=== PATIENT | male | born 1990 | race Caucasian/White ===

== ENCOUNTER 2021-09-28 14:58 | Outpatient (REF) | payer OTHER, SELFPAY | END 2021-09-28 14:59 | disposition home or self-care (01) | LOC: HO.MRI 14:58 | PROVIDERS: Visit Provider Nurse Practitioner Family | DX: Z13.89 Encounter for screening for other disorder (principal) ==

== ENCOUNTER 2023-08-28 12:59 | Outpatient (AMB) | payer OTHER, SELFPAY ==
--- NOTE | 2023-08-28 13:04 | A.OFFVIS_ITS ---
Intake Intake Visit Reasons: Urinary incontinence Intake Note: New Patient presents for initial visit for urinary incontinence Urology Medications: none Blood Thinner: none PVR: 55ml's Rehabilitation Counsellor Required: No Accompanied by: service dog Allergies cyclobenzaprine Allergy (Mild, Verified 08/29/23 13:31) Unknown gabapentin Allergy (Mild, Verified 08/29/23 13:31) Unknown grass pollen Allergy (Mild, Verified 08/29/23 13:31) Unknown melatonin Allergy (Mild, Verified 08/29/23 13:31) Unknown paxil Allergy (Mild, Uncoded 08/29/23 13:31) Unknown Medication List - Last Reconciled 08/29/23 by MONIKA Bateman escitalopram oxalate 20 mg PO DAILY methylphenidate HCl 20 mg PO DAILY zinc acetate (Galzin) 50 mg PO DAILY HPI HPI Comments History of Present Illness Details Matthew is a very pleasant 33-year-old male patient who was accompanied by his service dog at today's visit. He has a past medical history of PTSD, obstructive sleep apnea, morbid obesity, major depression, irritability and anger, insomnia, hypothyroidism, hyperlipidemia, GERD, and acquired buried penis. He presents to the office today as a new patient for urinary incontinence. Discussion with the patient today reports symptoms to have been present for quite some time however feels they are worsening. He reports urinary frequency, urinary urgency, and episodes of incontinence if not near a bathroom. He also reports noting issues with erectile dysfunction. He otherwise denies nocturia, hematuria, dysuria, foul smelling urine, changes to urinary stream, flank pain, fever, and or chills. In office urinalysis results reviewed with the patient today. PVR 55 mL. Discussed at length lifestyle modifications to assist with lower urinary tract symptoms and erectile dysfunction. When asked patient does report both maternal and paternal family history is of prostate cancer. [facility] Medical History (Updated 08/29/23 @ 14:52 by MONIKA Bateman) PTSD (post-traumatic stress disorder) Pain in left thigh Obstructive sleep apnea Morbid obesity Major depression Irritability and anger Insomnia due to mental condition Impaired fasting glucose Hypothyroidism Hyperlipidemia GERD (gastroesophageal reflux disease) Chest pain Acquired buried penis Review of Systems Eyes Reports no additional complaints ENT Reports no additional complaints Card Reports as per HPI Resp Reports as per HPI GI Reports no additional complaints Reports as per HPI Musc Reports no additional complaints Neuro Reports as per HPI Psych Reports as per HPI Endo Reports no additional complaints Chandler/Lymph Reports no additional complaints Aller/Immun Reports no additional complaints Physical Exam Const General: cooperative, comfortable, no acute distress, well developed, alert and awake Nutritional Appearance: overweight Orientation/consciousness: patient oriented x3 Limitations: no limitations HEENT Head: Yes normal to inspection, Yes normocephalic and Yes atraumatic Ears: hearing grossly normal bilaterally Eyes General: appearance normal, both eyes and all related structures Neck Neck: Yes normal visual inspection and Yes trachea midline Chest Chest palpation & inspection: normal inspection of the chest Resp Effort & Inspection: normal respiratory effort and able to speak in complete sentences Cardio Rate: regular rate GI Inspection: Yes normal to inspection General: Yes no CVA tenderness Back/Spine/Pelvis Back: no CVA tenderness Skin General skin exam: no rashes or lesions noted Neuro General: patient oriented x3 Extrem General: Yes normal to inspection Psych Appearance: grossly normal and well kempt Mental Status: mental status grossly normal Speech and movement: Normal speech and movement present and Clear speech present Affect: normal affect Attitude: cooperative Thought process: Normal thought process present Thought content: Normal thought content present Insight: Fair insight present (Psych) Judgement: Fair judgement present (Psych) Office Procedures Post Void Residual Post Residual Void Post Void Residual (PVR): 55 [id number] Void Residual by ultrasound Results AMB Urinalysis, Automated UA Leukoctes 0 Shiela/uL Last Edit by SCM-GL Tramaine on 08/28/23 13:49 UA Nitrite Negative Last Edit by SCM-GL Tramaine on 08/28/23 13:49 UA Urobilinogen 0.2 mg/dL Last Edit by SCM-GL Tramaine on 08/28/23 13:49 UA Protein 15 mg/dL Last Edit by [employer] on 08/28/23 13:49 UA pH 6.0 Last Edit by [employer] on 08/28/23 13:49 UA Blood 25 Darrin/uL Last Edit by SCM-GL [employer] on 08/28/23 13:49 UA Specific [place] 1.015 Last Edit by [employer] on 08/28/23 13:49 UA Ketone Negative Last Edit by [email or web address] on 08/28/23 13:49 UA Bilirubin 1 mg/dL Last Edit by [email or web address] on 08/28/23 13:49 UA Glucose 0 mg/dL Last Edit by Korey Redd on 08/28/23 13:49 Results Reviewed Results Reviewed: Laboratory Last Values Urine pH (Auto) 6.0 08/28/23 13:43 Specific [place] (Auto) 1.015 08/28/23 13:43 Urine Protein (Auto) 15 mg/dL 08/28/23 13:43 Glucose (UA)(Auto) 0 mg/dL 08/28/23 13:43 Urine Ketones (Auto) Negative 08/28/23 13:43 Urine Blood (Auto) 25 Darrin/uL 08/28/23 13:43 Urine Nitrite (Auto) Negative 08/28/23 13:43 Urine Bilirubin (Auto) 1 mg/dL 08/28/23 13:43 Urine Urobilinogen (Auto) 0.2 mg/dL 08/28/23 13:43 Leukocyte Esterase (Auto) 0 Shiela/uL 08/28/23 13:43 Assessment & Plan Assessment & Plan (1) Lower urinary tract symptoms: Code(s): R39.9 - Unspecified symptoms and signs involving the genitourinary system (2) Urinary incontinence, urge: Code(s): N39.41 - Urge incontinence Plan In office urinalysis results reviewed with the patient today; as noted above. PVR 55 mL. Discussed at length potential causes for lower urinary tract symptoms. Discussed bladder triggers/irritants. Will obtain retroperitoneal ultrasound for further assessment evaluation Will obtain PSA for further assessment evaluation. Discussed at length lifestyle modifications with continuing to lose weight, attempting to void sitting down, scheduled toileting, and pelvic floor therapy. Follow-up in 6-8 weeks with imaging and labs to be completed prior; or sooner with any issues, concerns, and or questions. Orders: Orders AMB Post Void Residual by ultrasound 08/28/23 Z13.9 - Encounter for screening, unspecified US retroperitoneal comp 08/28/23 R39.9 - Unspecified symptoms and signs involving the genitourinary system Urine Cytology 08/28/23 R39.9 - Unspecified symptoms and signs involving the genitourinary system AMB Urinalysis Automated 08/28/23 Z13.9 - Encounter for screening, unspecified Prostate Specific Antigen 08/28/23 R39.9 - Unspecified symptoms and signs involving the genitourinary system Patient Instructions: The patient had an opportunity to ask questions regarding the treatment plan. All questions were answered. Physical exam, labs, and imaging were discussed and reviewed in detail. As well as risks, benefits, and discussion of treatment choices. No major barriers to understanding were identified. The patient expressed understanding and agreement with the above treatment plan. The patient was made aware they should contact our office by phone for worsening of their current condition, the appearance of new symptoms, or with any questions or concerns. Compliance is encouraged with any medications and follow up testing that is ordered. It is a privilege to be allowed the opportunity to participate in? your urological care.? Again, if you have any questions or concerns If you have any questions or concerns please do not hesitate to contact me. The office is [phone]. This note is constructed using voice recognition software. While every effort has been made to ensure accuracy department clerk errors may have been included. Yours sincerely, MONIKA Bateman Coding Level of Care Code New Pt Level 3 (96782) Diagnoses Lower urinary tract symptoms R39.9 Urinary incontinence, urge N39.41 CPT Codes Post Residual Void - PVR CPT Code: 63148-Okme Void Residual by ultrasound ([id number])
== END 2023-08-28 14:01 | disposition home or self-care (01) ==
PROVIDERS: PCP Internal Medicine Endocrinology, Diabetes & Metabolism; Visit Provider Nurse Practitioner Family
DX: R39.9 Unspecified symptoms and signs involving the genitourinary system (principal); N39.41 Urge incontinence
CPT/HCPCS: 99203

== ENCOUNTER 2023-08-28 12:59 | Outpatient (REF) | payer OTHER, SELFPAY ==
[2023-08-28 17:02] LABS: Urine Cytology See Pathology rpt
== END 2023-08-28 13:00 | disposition home or self-care (01) ==
LOC: HO.LNP 12:59
PROVIDERS: Visit Provider Nurse Practitioner Family
DX: N39.41 Urge incontinence (principal); R39.9 Unspecified symptoms and signs involving the genitourinary system
CPT/HCPCS: 51798; 81003; 88112; 99202

== ENCOUNTER 2023-10-03 11:29 | Outpatient (REF) | payer OTHER, SELFPAY ==
--- NOTE | ~2023-10-03 | US_ITS ---
EXAMINATION: US RETROPERITONEAL LIMITED (RENAL ONLY) CLINICAL INFORMATION: Urinary incontinence. COMPARISON: None available. TECHNIQUE: Real-time imaging of the kidneys. FINDINGS: RIGHT KIDNEY: 12.1 x 5.1 x 6.5 cm (SAG x AP x TRV). The kidney is normal in size, contour, and echogenicity. Renal cortical thickness is normal. No calculi or focal parenchymal lesions. No hydronephrosis. LEFT KIDNEY: 10.8 x 5.3 x 4.7 cm (SAG x AP x TRV). The kidney is normal in size, contour, and echogenicity. Renal cortical thickness is normal. No calculi or focal parenchymal lesions. No hydronephrosis. US/US renal BI IMPRESSION: Normal renal ultrasound..
== END 2023-10-03 11:30 | disposition home or self-care (01) ==
LOC: HO.US 11:29
PROVIDERS: PCP Nurse Practitioner Family; Visit Provider Nurse Practitioner Family
DX: R39.9 Unspecified symptoms and signs involving the genitourinary system (principal)
CPT/HCPCS: 76775

== ENCOUNTER 2023-10-08 10:16 | Outpatient (REF) | payer OTHER, SELFPAY ==
--- NOTE | ~2023-10-08 | US_ITS ---
EXAMINATION: US PELVIS LIMITED (BLADDER) CLINICAL INFORMATION: Unspecified symptoms and signs involving the genitourinary system. COMPARISON: None available. TECHNIQUE: Real-time imaging of the bladder. FINDINGS: BLADDER: Well distended and normal. Bilateral ureteral jets are demonstrated. Prevoid bladder volume is 351.0 mL. Postvoid bladder volume is 28.6 mL. Prostate volume 15.7 mL. US/US bladder IMPRESSION: Unremarkable study.
== END 2023-10-08 10:17 | disposition home or self-care (01) ==
LOC: HO.US 10:16
PROVIDERS: Visit Provider Nurse Practitioner Family
DX: R39.9 Unspecified symptoms and signs involving the genitourinary system (principal)
CPT/HCPCS: 76857